=== PATIENT | female | born 1980 | race Caucasian/White ===

== ENCOUNTER 2019-07-02 17:47 | Emergency (ER) | payer OTHER, SELFPAY ==
[2019-07-02 18:25] VITALS: BP 153/94; PULSE 94; RESP 20; TEMP 36.6; O2SAT 100; BMI 30.5
[2019-07-02 19:21] LABS: Alanine Aminotransferase 22 IU/L (9-52); Albumin 4.9 g/dL (3.5-5.0); Albumin Globulin Ratio 1.5 (1.0-2.8); Alkaline Phosphatase 37 U/L (38-126); Aspartate Aminotransferase 34 IU/L (14-36); BUN Creatinine Ratio 28.6 (6-22); Bilirubin Total 0.9 mg/dL (0.2-1.3); Blood Urea Nitrogen 20 mg/dL (7-17); Carbon Dioxide 23 mmol/L (22-32); Chloride 104 mmol/L (98-107); Estimated Glomerular Filt Rate > 60.0 mL/min (>60); Globulin 3.2 g/dL (1.7-4.1); Glucose 85 mg/dL (70-100); Potassium 3.9 mmol/L (3.4-5.1); Sodium 140 mmol/L (137-145); Total Protein 8.1 g/dL (6.3-8.2)
[2019-07-02 19:24] LABS: HEMOLYSIS 54 (0-50)
[2019-07-02 19:29] LABS: Basophils Absolute Auto 100 /uL (0-100); Basophils Percent Auto 0.8 % (0-2); Eosinophils Absolute Auto 100 /uL (0-450); Eosinophils Percent Auto 1.6 % (2-4); Hematocrit 45.1 % (36-46); Hemoglobin 15.6 g/dL (12.0-16.0); Lymphocytes Absolute Auto 2600 /uL (1100-4500); Lymphocytes Percent Auto 33.5 % (25-40); Mean Corpuscular HGB Conc 34.7 % (30-36); Mean Corpuscular Hemoglobin 31.9 PG (26-34); Mean Corpuscular Volume 92.1 fL (80-100); Monocytes Absolute Auto 600 /uL (0-900); Monocytes Percent Auto 7.2 % (3-14); Neutrophils Absolute Auto 4400 /uL (1500-7000); Neutrophils Percent Auto 56.9 % (50-75); Platelet Count 268 X10^3/uL (150-400); Red Cell Distribution Width 12.5 % (11.6-14.8); White Blood Cell Count 7.7 X10^3/uL (4.5-11.0)
[2019-07-02 19:30] LABS: Add Manual Diff / Slide Review SLIDE REVIEW
[2019-07-02 19:50] VITALS: BP 131/83; PULSE 81; RESP 16; O2SAT 100
--- NOTE | 2019-07-02 19:55 | ED_ITS ---
HPI - Arrhythmia/Palpitations General Chief Complaint: Arrhythmia/Palpitations Stated Complaint: Heart palpitations/high pulse rate 116 Time Seen by Provider: 07/02/19 18:44 Source: patient Mode of arrival: ambulatory Limitations: no limitations History of Present Illness HPI narrative: Patient comes emergency department complaining of palpitations that started around noon today. She states that they have steadily worsened over the course the afternoon in that she feels like she is getting them more often. Patient denies any chest pain, but states her chest feels a little tight. She states that it feels as though her heart ?skips a beat.? She denies any shortness of breath. Patient states that she drank 1 cup of coffee today. Patient states that normally, she has 2 cups in the morning. She does not drink any other caffeinated beverages, and does not drink any energy drinks. She does note that her blood pressure medication was changed from metoprolol to lisinopril about 2 weeks ago. She has also been on the [employer] workout plan for about the last 24 days. Patient states that overall, she has felt increasingly good having been on the workout program. Patient denies vomiting or diarrhea recently. She was found to have borderline thyroid dysfunction on last testing, and states she is supposed to see her doctor in 2 months to have her thyroid retested. At this time, she is not on any medications for her thyroid. Patient denies any fevers or chills. No cough or rhinorrhea. No rec ent illness of any kind. Patient states that her father recently had an NE, and she is afraid of being at risk for this herself. Patient denies smoking. She is not a diabetic. Patient has had an increase and not a decrease in exercise tolerance recently. Related Data Home Medications Medication Instructions Recorded Confirmed [ control] #0 07/22/17 [mynocycline] #0 07/22/17 [valtrex] #0 07/22/17 [vitamin D] #0 07/22/17 Previous Rx's Medication Instructions Recorded levothyroxine [Synthroid] 100 mcg PO DAILY #30 tab 07/02/19 Allergies Allergy/AdvReac Type Severity Reaction Status Date / Time No Known Drug Allergies Allergy Verified 07/02/19 18:32 Review of Systems Review of Systems ROS Unobtainable: All systems reviewed & are unremarkable except as noted in HPI and below Constitutional Constitutional: Denies chills, Denies fatigue, Denies fever(s), Denies frequent falls, Denies lethargy and Denies weakness Eyes Eyes: Denies change in vision, Denies eye discharge, Denies irritation and Denies loss of vision ENT Ears, Nose, Mouth, and Throat: Denies change in voice, Denies dizziness, Denies neck pain, Denies sore throat and Denies throat swelling Cardiovascular Cardiovascular: Denies chest pain, Denies irregular heart rhythm, Denies lightheadedness, Reports palpitations, Denies dyspnea, Denies dyspnea on exertion and Denies orthopnea Respiratory Respiratory: Denies cough, Denies dyspnea, Denies dyspnea on exertion and Denies wheezing Gastrointestinal Gastrointestinal: Denies abdominal pain, Denies change in bowel habits, Denies diarrhea, Denies nausea and Denies vomiting Genitourinary Genitourinary: Denies hematuria, Denies flank pain, Denies urinary incontinence and Denies urinary urgency Musculoskeletal Musculoskeletal: Denies back pain, Denies muscle weakness, Denies neck pain, Denies numbness and Denies tingling Integumentary/Breasts Skin/Breast: Denies pruritus, Denies erythema, Denies rash and Denies wounds Neurologic Neurologic: Denies behavioral changes, Denies confusion, Denies dizziness, Denies frequent falls, Denies loss of vision, Denies numbness, Denies tingling and Denies weakness Psychiatric Psychiatric: Denies anxiety, Denies behavioral changes, Denies confusion, Denies depression, Denies homicidal ideation and Denies suicidal ideation Endocrine Endocrine: Denies fatigue, Denies flushing and Reports palpitations Hematologic/Lymphatic Hematologic/Lymphatic: Denies easy bruising Allergic/Immunologic Allergic/Immunologic: Denies urticaria, Denies throat swelling and Denies wheezing [facility] Medical History HTN (hypertension) (Acute) Surgical History No pertinent past surgical history (Acute) Social History Smoking Status: Former smoker Social History Smoking Status: Former smoker Exam Initial Vital Signs Initial Vital Signs: Vital Signs Temperature 97.9 F 07/02/19 18:25 Pulse Rate 94 H 07/02/19 18:25 Respiratory Rate 20 07/02/19 18:25 Blood Pressure 153/94 H 07/02/19 18:25 Pulse Oximetry 100 07/02/19 18:25 Const General: cooperative and well developed Nutritional Appearance: well nourished Orientation: alert, awake, oriented x3 and not confused [facility] Head: normocephalic and atraumatic Ears: TM's normal bilaterally Nose: external nose normal Face and sinus: face symmetric and No dry mucous membranes Mouth: oral mucosae normal and moist mucous membranes Teeth and gingiva: dentition normal Eyes General: appearance normal, both eyes and all related structures Eyelids: eyelids normal Conjunctivae: conjunctivae normal Sclera: sclerae normal Pupils: PERRL EOM: EOM intact bilaterally Neck Neck: normal visual inspection, trachea midline, No lymphadenopathy, No midline deformity and No JVD Lymphatic: No lymphedema Chest Chest: normal inspection of the chest Resp Effort & Inspection: normal respiratory effort, able to speak in complete sentences, no respiratory distress and no use of accessory muscles Auscultation: clear to auscultation bilaterally, no rales, no rhonchi and no wheezes Cardio Rate: regular rate Rhythm: regular rhythm Heart Sounds: no click, no gallops, no murmurs and no rubs Pulses: normal peripheral pulses GI Inspection: non-distended Palpation: soft, no hepatosplenomegaly, No guarding, No pulsatile mass and No tender Auscultation: normal bowel sounds Back/Spine/Pelvis Back: No CVA tenderness Cervical Spine: cervical ROM normal and No pain with cervical ROM Thoracic/Lumbar Spine: thoracic and lumbar spine normal to inspection Skin General: no rashes or lesions noted, No jaundice and No petechiae Neuro General: alert, oriented x3, gait normal and no focal motor deficits Speech: speech normal Extrem General: full ROM, no clubbing, cyanosis or edema, no pedal edema and no calf tenderness Psych Appearance: well kempt Mental Status: mental status grossly normal Attitude: cooperative Thought Content: normal and suicidality Judgment: judgment good Course Course Course Narrative: Patient was given a L of IV fluid and worked up with laboratory studies and EKG. EKG was unremarkable except for occasional PVCs. Patient was also found to have occasional PVCs on monitor. Workup revealed a significantly elevated TSH. Discussed with the patient that the hypothyroidism very well may be contributing to the patient's palpitations, but that this also may be a coincidental finding. I have started the patient on Synthroid from the emergency department. I have discussed with her the importance of following up her primary care physician within the next 1-2 weeks to have her thyroid reche cked. Patient states that she has an appointment coming up very soon. We have discussed home management of symptoms, as well as the usual indications for return. Orders Ordered: Discontinued Medications Sodium Chloride (Normal Saline 0.9%) 1,000 mls @ 1,000 mls/hr IV BOLUS ONE Stop: 07/02/19 20:53 Last Infusion: 07/02/19 21:18 Dose: 0 mls/hr Documented by: Admin: 07/02/19 19:59 Dose: 1,000 mls/hr Documented by: TAN Vital Signs Vital signs: Vital Signs - 8 hr 07/02/19 18:25 07/02/19 19:50 Temperature 97.9 F Pulse Rate 94 H 81 Respiratory Rate 20 16 Blood Pressure 153/94 H Blood Pressure [Right Arm] 131/83 Pulse Oximetry 100 100 MDM - Arrhythmia/Palpitations Medical Records Attestation: I reviewed the patient's medical records. Lab Data Attestation: I reviewed the patient's lab results. Result diagrams: 07/02/19 18:59 07/02/19 18:59 Labs: Lab Results 07/02/19 07/02/19 07/02/19 Range/Units 18:59 18:59 18:59 WBC 7.7 (4.5-11.0) X10^3/uL RBC 4.90 (4.0-5.2) X10^6/uL Hgb 15.6 (12.0-16.0) g/dL Hct 45.1 (36-46) % MCV 92.1 (80-100) fL MCH 31.9 (26-34) PG MCHC 34.7 (30-36) % RDW 12.5 (11.6-14.8) % Plt Count 268 (150-400) X10^3/uL Neut % (Auto) 56.9 (50-75) % Lymph % (Auto) 33.5 (25-40) % [place] % (Auto) 7.2 (3-14) % Eos % (Auto) 1.6 L (2-4) % Baso % (Auto) 0.8 (0-2) % Neut # (Auto) 4400 (9005-7798) /uL Lymph # (Auto) 2600 (5962-4941) /uL [place] # (Auto) 600 (0-900) /uL Eos # (Auto) 100 (0-450) /uL Baso # (Auto) 100 (0-100) /uL RBC Morphology Normal morphology Sodium 140 (137-145) mmol/L Potassium 3.9 (3.4-5.1) mmol/L Chloride 104 (98-107) mmol/L Carbon Dioxide 23 (22-32) mmol/L BUN 20 H (7-17) mg/dL Creatinine 0.70 (0.52-1.04) mg/dL Estimated GFR > 60.0 (>60) mL/min BUN/Creatinine Ratio 28.6 H (6-22) Glucose 85 (70-100) mg/dL Calcium 10.0 (8.4-10.2) mg/dL Total Bilirubin 0.9 (0.2-1.3) mg/dL AST 34 (14-36) IU/L ALT 22 (9-52) IU/L Alkaline Phosphatase 37 L (38-126) U/L Total Protein 8.1 (6.3-8.2) g/dL Albumin 4.9 (3.5-5.0) g/dL Globulin 3.2 (1.7-4.1) g/dL Albumin/Globulin Ratio 1.5 (1.0-2.8) TSH 7.86 H (0.47-4.68) uIU/mL ECG Data Attestation: I personally reviewed and interpreted this ECG as follows: (See below) Interpretation: Twelve lead EKG: Regular ventricular rhythm with a normal rate Normal axis P waves of normal morphology and size correlating well with QRS complexes NM intervals normal QRS complexes narrow No significant ST T wave changes Occasional ectopy Interpretation: Normal sinus rhythm; cage in all PVC; no signs of acute ischemia; normal EKG as interpreted by ED MD. Discharge Plan Departure Patient Disposition: Home Clinical Impression: Palpitations Hypothyroidism Qualifiers: Hypothyroidism type: unspecified Qualified Code(s): E03.9 - Hypothyroidism, unspecified Discharge Date/Time: 07/02/19 21:24 Instructions: DI for Arrhythmias, DI for Hypothyroidism Activity Restrictions/Additional Instructions: Overall, her labs pretty good. Your thyroid stimulating hormone, however (the hormone that is put out by your pituitary gland to tell the thyroid to do its job), was significantly elevated. As such, you will be prescribed thyroid medication, but you should follow-up with your primary doctor within the next week to determine if this is a good long-term dose for you. There is no quiles erous cause palpitations at this time. You have been found to have premature ventricular complexes, which are extra beats thrown in by the pump portion of your heart. These are benign and extremely common. If you develop a heart rate that is sustained above 120 beats per minute, you should return to the emergency department. Otherwise, please follow up with your primary doctor if the palpitations worsen. Prescriptions: New levothyroxine [Synthroid] 100 mcg tablet 100 mcg PO DAILY Qty: 30 RF: 0 No Action [ control] Qty: 0 RF: 0 [mynocycline] Qty: 0 RF: 0 [valtrex] Qty: 0 RF: 0 [vitamin D] Qty: 0 RF: 0 Referrals: Shun Ortega MD [Primary Care Provider] -
[2019-07-02] MEDS: SODIUM CHLORIDE 0.9% 1,000 ML 1000 ML IV (19:59)
[2019-07-02 20:08] LABS: RBC Morphology Normal Morphology
[2019-07-02 20:49] LABS: Thyroid Stimulating Hormone 7.86 uIU/mL (0.47-4.68)
[2019-07-02 21:00] VITALS: BP 129/77; PULSE 81; RESP 17; O2SAT 100
== END 2019-07-02 21:24 | disposition home or self-care (01) ==
PROVIDERS: Emergency Provider Emergency Medicine; Family Provider Family Medicine; PCP Family Medicine
DX: R00.2 Palpitations (principal); E03.9 Hypothyroidism, unspecified
CPT/HCPCS: 80053; 84443; 85025; 93005; 96360; 99283; 99284

== ENCOUNTER → 2019-08-25 12:04 | Outpatient (CLI) | payer OTHER, SELFPAY ==
[2019-08-25 13:13] LABS: Free T3, Triiodothyronine Free 3.96 pg/mL (2.77-5.27)
[2019-08-25 13:27] LABS: Thyroid Stimulating Hormone 1.91 uIU/mL (0.47-4.68)
[2019-08-30 15:24] LABS: Thyroid Peroxidase Antibodies 36 IU/mL (< 9)
== END ==
PROVIDERS: PCP Family Medicine; Visit Provider Naturopath
DX: E03.9 Hypothyroidism, unspecified (principal)
CPT/HCPCS: 36415; 84439; 84443; 84481; 86376

== ENCOUNTER → 2019-12-19 17:04 | Outpatient (CLI) | payer BC, SELFPAY ==
--- NOTE | 2019-12-19 | DI.MG.S_ITS ---
BILATERAL DIGITAL SCREENING MAMMOGRAM 3D/2D WITH CAD: 12/19/2019 CLINICAL: Routine screening. Baseline exam. No prior exams were available for comparison. There are scattered fibroglandular elements in both breasts. Current study was also evaluated with a Computer Aided Detection (CAD) system. There are benign intramammary nodes in both breasts. No significant masses, calcifications, or other findings are seen in either breast. IMPRESSION: There is no mammographic evidence of malignancy. A 1 year screening mammogram is recommended. This exam was interpreted at Station ID: [id number]. NOTE: For mammograms, a report in lay terms will be sent to the patient. Approximately 15% of breast malignancies will not be visualized mammographically. In the management of a palpable breast mass, a negative mammogram must not discourage biopsy of a clinically suspicious lesion. Electronically Signed By: Trino peterson/gallo:12/20/2019 08:25:36 letter sent: Normal Exam ACR BI-RADS Category 2: Benign Finding(s) 3342F
== END ==
PROVIDERS: PCP Family Medicine; Referring Provider Internal Medicine; Visit Provider Internal Medicine
DX: Z12.31 Encounter for screening mammogram for malignant neoplasm of breast (principal)
CPT/HCPCS: 77063; 77067

== ENCOUNTER → 2020-12-21 08:08 | Outpatient (CLI) | payer BC, SELFPAY ==
--- NOTE | 2020-12-21 | DI.MG.S_ITS ---
BILATERAL DIGITAL SCREENING MAMMOGRAM 3D/2D WITH CAD: 12/21/2020 CLINICAL: Routine screening. Comparison is made to exam dated: 12/19/2019 [facility]. There are scattered fibroglandular elements in both breasts. Current study was also evaluated with a Computer Aided Detection (CAD) system. There are benign intramammary nodes in both breasts. No significant masses, calcifications, or other findings are seen in either breast. There has been no significant interval change. IMPRESSION: BENIGN There is no mammographic evidence of malignancy. A 1 year screening mammogram is recommended. This exam was interpreted at Station ID: [id number]. NOTE: For mammograms, a report in lay terms will be sent to the patient. Approximately 15% of breast malignancies will not be visualized mammographically. In the management of a palpable breast mass, a negative mammogram must not discourage biopsy of a clinically suspicious lesion. Electronically Signed By: Trino peterson/gallo:12/23/2020 07:26:16 letter sent: Normal Exam ACR BI-RADS Category 2: Benign Finding(s) 3342F
== END ==
PROVIDERS: PCP Family Medicine; Referring Provider Family Medicine; Visit Provider Family Medicine
DX: Z12.31 Encounter for screening mammogram for malignant neoplasm of breast (principal)
CPT/HCPCS: 77063; 77067

== ENCOUNTER → 2022-11-13 09:26 | Outpatient (CLI) | payer BC, SELFPAY ==
--- NOTE | 2022-11-13 | DI.RAD.S_ITS ---
PROCEDURE: XR KNEE RT 3V INDICATIONS: right knee pain TECHNIQUE: 3 views of the knee were acquired. COMPARISON: [facility], , KNEE 3V RIGHT, 09/18/2015, 13:41. FINDINGS: Bones: No fractures or dislocations. No suspicious bony lesions. Soft tissues: No joint effusion. No suspicious soft tissue calcifications. IMPRESSION: Normal right knee radiographs Approved by: Alonso Thomson M.D. on 11/13/2022 at 13:06
== END ==
PROVIDERS: PCP Family Medicine; Referring Provider Family Medicine; Visit Provider Family Medicine
DX: M25.561 Pain in right knee (principal)
CPT/HCPCS: 73562

== ENCOUNTER → 2022-12-05 08:34 | Outpatient (CLI) | payer BC, SELFPAY ==
--- NOTE | 2022-12-05 08:35 | DI.MG.S_ITS ---
BILATERAL DIGITAL SCREENING MAMMOGRAM 3D/2D WITH CAD: 12/05/2022 CLINICAL: Routine screening. Comparison is made to exams dated: 12/21/2020 mammogram and 12/19/2019 mammogram - [facility]. There are scattered areas of fibroglandular density in both breasts (category b / 25%-50% glandular tissue). Current study was also evaluated with a Computer Aided Detection (CAD) system. There is an oval low density asymmetry with an obscured and circumscribed margin in the right breast at 11 o'clock posterior depth. No other significant masses, calcifications, or other findings are seen in either breast. IMPRESSION: INCOMPLETE: NEEDS ADDITIONAL IMAGING EVALUATION The oval low density asymmetry in the right breast is indeterminate. Mediolateral and spot compression views as well as additional views with possible ultrasound are recommended. Based on the Tyrer Cuzick model (a risk assessment model) the patient's lifetime risk is 8.5% and her 10 year risk is 1.2%. According to the ACR, ACS, and NCCN guidelines, an annual breast MRI exam along with mammogram is recommended if the patient's lifetime risk is 20% or greater. This exam was interpreted at Station ID: [id number]. NOTE: For mammograms, a report in lay terms will be sent to the patient. Approximately 15% of breast malignancies will not be visualized mammographically. In the management of a palpable breast mass, a negative mammogram must not discourage biopsy of a clinically suspicious lesion. Electronically Signed By: Chin swanson/gallo:12/07/2022 02:47:53 letter sent: Additional Imaging Needed ACR BI-RADS Category 0: Incomplete 3340F
== END ==
PROVIDERS: PCP Family Medicine; Referring Provider Family Medicine; Visit Provider Family Medicine
DX: Z12.31 Encounter for screening mammogram for malignant neoplasm of breast (principal)
CPT/HCPCS: 77063; 77067

== ENCOUNTER → 2022-12-29 10:43 | Outpatient (CLI) | payer BC, SELFPAY ==
--- NOTE | 2022-12-29 | DI.US.S_ITS ---
LIMITED ULTRASOUND OF RIGHT BREAST: 12/29/2022 CLINICAL: Patient returns today to evaluate an asymmetry in the right breast. Comparison is made to exams dated: 12/29/2022 mammogram, 12/05/2022 mammogram, 12/21/2020 mammogram, and 12/19/2019 mammogram - [facility]. Color flow and real-time ultrasound of the right breast 11 o'clock region were performed. Rogers scale images of the real-time examination were reviewed. No sonographic correlate for the right breast asymmetry. IMPRESSION: NEGATIVE No sonographic correlate for the right breast asymmetry which is of decreased conspicuity on current mammogram with spot compression. This likely represents fibroglandular tissue superimposed on the recent screening mammogram. A follow-up mammogram in 6 months is recommended to demonstrate stability. This exam was interpreted at Station ID: [id number]. Electronically Signed By: Christopher Waldron M.D. jr/:12/29/2022 13:03:05 letter sent: Followup Recommended Ultrasound BI-RADS: 1 Negative
--- NOTE | 2022-12-29 | DI.MG.S_ITS ---
UNILATERAL RIGHT DIGITAL DIAGNOSTIC MAMMOGRAM 3D/2D WITH ADDITIONAL VIEWS: 12/29/2022 CLINICAL: Additional evaluation requested from prior study. Comparison is made to exams dated: 12/05/2022 mammogram, 12/21/2020 mammogram, and 12/19/2019 mammogram - [facility]. There are scattered areas of fibroglandular density in the right breast (category b / 25%-50% glandular tissue). There is an oval low density asymmetry with an obscured and circumscribed margin in the right breast at 11 o'clock posterior depth. This is seen in additional views. This is less prominent. No other significant masses or calcifications are seen in the breast. IMPRESSION: INCOMPLETE: NEEDS ADDITIONAL IMAGING EVALUATION The oval low density asymmetry in the right breast is indeterminate. An ultrasound is recommended. Based on the Tyrer Cuzick model (a risk assessment model) the patient's lifetime risk is 8.5% and her 10 year risk is 1.3%. According to the ACR, ACS, and NCCN guidelines, an annual breast MRI exam along with mammogram is recommended if the patient's lifetime risk is 20% or greater. This exam was interpreted at Station ID: [id number]. NOTE: For mammograms, a report in lay terms will be sent to the patient. Approximately 15% of breast malignancies will not be visualized mammographically. In the management of a palpable breast mass, a negative mammogram must not discourage biopsy of a clinically suspicious lesion. Electronically Signed By: Christopher Waldron M.D., jr/gallo:12/29/2022 13:01:06 ACR BI-RADS Category 0: Incomplete 3340F
== END ==
PROVIDERS: PCP Family Medicine; Referring Provider Family Medicine; Visit Provider Family Medicine
DX: R92.8 Other abnormal and inconclusive findings on diagnostic imaging of breast (principal); N64.89 Other specified disorders of breast
CPT/HCPCS: 76642; 77065; G0279

== ENCOUNTER → 2023-02-09 07:12 | Outpatient (CLI) | payer BC, SELFPAY ==
[2023-02-09 08:43] LABS: Add Manual Diff / Slide Review NO; Basophils Absolute Auto 100 /uL (0-100); Basophils Percent Auto 0.9 % (0-2); Eosinophils Absolute Auto 200 /uL (0-450); Eosinophils Percent Auto 3.1 % (2-4); Hematocrit 42.3 % (36-46); Hemoglobin 14.6 g/dL (12.0-16.0); Lymphocytes Absolute Auto 2100 /uL (1100-4500); Lymphocytes Percent Auto 37.5 % (25-40); Mean Corpuscular HGB Conc 34.5 % (30-36); Mean Corpuscular Hemoglobin 31.3 PG (26-34); Mean Corpuscular Volume 90.6 fL (80-100); Monocytes Absolute Auto 500 /uL (0-900); Monocytes Percent Auto 8.1 % (3-14); Neutrophils Absolute Auto 2800 /uL (1500-7000); Neutrophils Percent Auto 50.4 % (50-75); Platelet Count 229 X10^3/uL (150-400); Red Blood Cell Count 4.66 X10^6/uL (4.0-5.2); Red Cell Distribution Width 12.7 % (11.6-14.8); White Blood Cell Count 5.6 X10^3/uL (4.5-11.0)
[2023-02-09 08:45] LABS: Alanine Aminotransferase 56 IU/L (<35); Albumin 4.1 g/dL (3.5-5.0); Albumin Globulin Ratio 1.4 (1.0-2.8); Alkaline Phosphatase 56 U/L (38-126); Aspartate Aminotransferase 43 IU/L (14-36); BUN Creatinine Ratio 25.4 (6-22); Bilirubin Total 0.2 mg/dL (0.2-1.3); Blood Urea Nitrogen 16 mg/dL (7-17); Calcium 9.1 mg/dL (8.4-10.2); Carbon Dioxide 26 mmol/L (22-32); Chloride 107 mmol/L (98-107); Cholesterol 184 mg/dL (140-199); Estimated Glomerular Filt Rate > 60 mL/min (>60); Globulin 2.9 g/dL (1.7-4.1); Glucose 101 mg/dL (70-100); HDL Cholesterol 71 mg/dL (40-60); HEMOLYSIS < 15 (0-50); LDL Cholesterol Calculated 96 mg/dL (<100); Potassium 4.1 mmol/L (3.4-5.1); Sodium 140 mmol/L (137-145); Triglycerides 85 mg/dL (35-150)
[2023-02-09 09:15] LABS: Free T3, Triiodothyronine Free 4.65 pg/mL (2.77-5.27); Free T4, Direct Thyroxine 0.77 ng/dL (0.78-2.19)
[2023-02-09 09:29] LABS: Thyroid Stimulating Hormone 4.69 uIU/mL (0.47-4.68)
== END ==
PROVIDERS: PCP Family Medicine; Referring Provider Naturopath; Visit Provider Naturopath
DX: Z00.00 Encounter for general adult medical examination without abnormal findings (principal); E03.9 Hypothyroidism, unspecified; F41.9 Anxiety disorder, unspecified
CPT/HCPCS: 36415; 80053; 80061; 84439; 84443; 84481; 85025

== ENCOUNTER 2023-03-16 05:34 | Emergency (ER) | payer BC, SELFPAY ==
[2023-03-16 05:41] VITALS: BP 176/88; PULSE 91; RESP 18; TEMP 36.3; O2SAT 100; BMI 34.2
--- NOTE | 2023-03-16 05:42 | DI.RAD.S_ITS ---
PROCEDURE: XR FOOT RT MIN 3V INDICATIONS: pain, swelling, plantar surface, anterior to calcaneus TECHNIQUE: 3 views of the foot were acquired. COMPARISON: None. FINDINGS: Bones: No fractures or dislocations. Tiny plantar calcaneal spur. No suspicious bony lesions. Soft tissues: No tibiotalar joint effusion. Achilles tendon appears normal. No radiopaque foreign body. IMPRESSION: No acute osseous abnormality. No radiopaque foreign body. Tiny plantar calcaneal spur. This report is concordant with the overnight preliminary interpretation. Dictated by: Uziel Kenney M.D. on 03/16/2023 at 7:53 Approved by: Uziel Kenney M.D. on 03/16/2023 at 7:55
--- NOTE | 2023-03-16 05:43 | ED.GENADULT ---
HPI - General Adult General Chief complaint: Extremity Problem,Nontraumatic Stated complaint: rt foot pain Time Seen by Provider: 03/16/23 05:42 History of Present Illness HPI narrative: 42-year-old female former smoker with noncontributory medical history presents with a chief complaint of gradually worsening pain on the bottom of her right foot over the past 2 weeks. She denies any known injury. She states that over that time she is had increasing pain when ambulating on the plantar surface of her foot just anterior to her heel. She denies stepping on any foreign bodies. She has had no change in her exercise or workout routine and denies any new footwear though she did buy some new shoes that she thought might help with this pain. She denies ankle, knee or hip pain. Related Data Home Medications Medication Instructions Recorded Confirmed [ control] ##0 07/22/17 [mynocycline] ##0 07/22/17 [valtrex] ##0 07/22/17 [vitamin D] ##0 07/22/17 Previous Rx's Medication Instructions Recorded levothyroxine 100 mcg tablet 100 mcg PO DAILY #30 tabs 07/02/19 (Synthroid) ketorolac 10 mg tablet 10 mg PO Q6H PRN pain #20 tabs 03/16/23 Allergies Allergy/AdvReac Type Severity Reaction Status Date / Time No Known Drug Allergies Allergy Verified 07/02/19 18:32 Review of Systems Review of Systems Narrative: GENERAL: Denies chills, fatigue, malaise, fever, sweats. HEENT: Denies sinus pain, ear pain, sore throat, difficulty swallowing, dizziness. RESPIRATORY: Denies dyspnea, cough, wheezing, hemoptysis, sputum. CARDIOVASCULAR: Denies chest pain, palpitations, orthopnea, edema, GASTROINTESTINAL: Denies nausea, vomiting, abdominal pain, diarrhea, constipation, melena. : Denies dysuria, frequency, incontinence, hematuria, urinary retention. MUSCULOSKELETAL: See HPI SKIN: Denies rash, skin lesions, or other NEUROLOGIC: Denies weakness, headache, numbness, change in speech, confusion, seizures, incoordination. PSYCHIATRIC: No concerning psychosocial issues. 12 point review of systems is negative except for those stated above Patient History Medical History (Updated 03/16/23 @ 05:53 by Jamar Ayoub DO) HTN (hypertension) Surgical History No pertinent past surgical history Social History Smoking Status: Former smoker Smoking Status: Former smoker alcohol intake frequency: a few times a week Substance Use Type: does not use Exam Narrative Exam Narrative: GEN: AOx3 and in mild distress EYES: Pupils are equal, round, and reactive to light and accommodation. Extraoccular muscles are intact bilaterally. There is no subconjunctival hemorrhage or exudate. CHEST: Lungs are clear to auscultation bilaterally and free of wheezes, rales, or rhonchi. Heart rate is regular rhythm, there are no murmurs, clicks, rubs, or gallops. There is no chest wall tenderness. ABD: Abdomen is soft and nontender. There is no guarding or rebound. Bowel sounds are normal in all 4 quadrants. There is no mass or organomegaly. EXT: Dorsum of foot without obvious deformity or discoloration, cap refill less than 2 seconds, no pain on lateral or medial malleolus or anteriorly over the talus. On plantar surface she is tender to palpation in the arch and plantar surface just anterior to the calcaneus. No erythema, lesions, foreign body or obvious plantar wart SKIN: Warm, pink, and dry. No erythema or rash Initial Vital Signs Initial Vital Signs: Vital Signs Temperature 97.3 F L 03/16/23 05:41 Pulse Rate 91 H 03/16/23 05:41 Respiratory Rate 18 03/16/23 05:41 Blood Pressure 176/88 H 03/16/23 05:41 Pulse Oximetry 100 03/16/23 05:41 Oxygen Delivery Method Room Air 03/16/23 05:41 Course Orders Ordered: ED Orders 03/16/23 05:42 XR foot RT min 3V Stat Medical Decision Making MDM Narrative Medical decision making narrative: [42] year old patient presents with R foot pain in the absence of obvious injury Multiple etiologies for patient's symptoms considered including, but not limited to: Plantar fasciitis versus plantar wart versus foreign body versus fracture versus dislocation versus other Prior Charts reviewed in our EMR Primary Historian: patient Imaging reviewed: Mild heel spur Patient with reassuring history and physical exam, imaging without obvious abnormality. No evidence of foreign body or or. Most likely consistent with plantar fasciitis or other similar inflammatory condition. Patient encouraged to consider the routine use of anti-inflammatories in the short term and avoid barefoot walking or flat shoes, encouraged to track down shoes with arch support or supplemental heel cups. Findings and discharge diagnosis discussed with patient/family followed by verbalization of understanding Return precautions discussed with patient/family whom verbalize understanding of diagnosis and plan Discharge Plan Departure Patient Disposition: Home Clinical Impression: Acute foot pain, Plantar fasciitis of right foot Instructions: DI for Plantar Fasciitis Activity Restrictions/Additional Instructions: *You have been diagnosed with [right foot pain most consistent with plantar fasciitis or other soft tissue inflammatory condition. As we discussed your history and physical exam are reassuring and imaging shows no obvious foreign body or bony abnormality] *What to do: *Please continue your routine meds a previously prescribed [x] Prescription sent to [email or web address] at your request [x] Consider obtaining shoes with adequate arch support or arch inserts, you can also find prefabricated heel cups that can be helpful *Please follow up with your primary care provider in 5-73 days, call for an appointment. Let them know you were seen in the Emergency Department and that we ask that you be seen in follow up. We will electronically transmit a record of today's note if your PCP is in our system *Return to Emergency Department if you should have any new, worsening or concerning symptoms, such as [fever greater than 101 F, shaking chills, worsening pain, persistent vomiting or other bothersome symptoms] Radiographic study has been interpreted by an emergency physician. The official diagnosis by radiology will be performed within the next 24 hours and should there be any change in outcome we will notify you of how to proceed. Prescriptions: New ketorolac 10 mg tablet 10 mg PO Q6H PRN (Reason: pain) Qty: 20 0RF No Action [ control] Qty: 0 [mynocycline] Qty: 0 [valtrex] Qty: 0 [vitamin D] Qty: 0 levothyroxine [Synthroid] 100 mcg tablet 100 mcg PO DAILY Qty: 30 0RF Referrals: Shun Ortega MD [Primary Care Provider] - Stand Alone Forms: Patient Portal/API
[2023-03-16 06:05] VITALS: BP 128/83
== END 2023-03-16 06:08 | disposition home or self-care (01) ==
PROVIDERS: Emergency Provider Emergency Medicine; PCP Family Medicine
DX: M72.2 Plantar fascial fibromatosis (principal); M79.671 Pain in right foot
CPT/HCPCS: 73630; 99281; 99283

== ENCOUNTER → 2023-07-06 09:20 | Outpatient (CLI) | payer BC, SELFPAY ==
--- NOTE | 2023-07-06 | DI.MG.S_ITS ---
UNILATERAL RIGHT DIGITAL DIAGNOSTIC MAMMOGRAM 3D/2D SHORT-TERM FOLLOW-UP: 07/06/2023 CLINICAL: Short term follow up of the right breast. Comparison is made to exams dated: 12/29/2022 ultrasound, 12/29/2022 mammogram, and 12/05/2022 mammogram - [facility]. There are scattered areas of fibroglandular density in the right breast (category b / 25%-50% glandular tissue). There are new grouped heterogeneous calcifications in the right breast at 3 o'clock posterior depth. There also are new grouped heterogeneous calcifications in the right breast at 12 o'clock posterior depth. Additionally, there are new grouped heterogeneous calcifications in the right breast at 6 o'clock middle depth. No other significant masses or calcifications are seen in the breast. IMPRESSION: PROBABLY BENIGN The new grouped heterogeneous calcifications in the right breast at 3 o'clock posterior depth most likely are fat necrosis and are probably benign. The new grouped heterogeneous calcifications in the right breast at 12 o'clock posterior depth most likely are fat necrosis and are probably benign. The new grouped heterogeneous calcifications in the right breast at 6 o'clock middle depth most likely are fat necrosis and are probably benign. A follow-up bilateral mammogram with possible right ultrasound in 6 months is recommended to demonstrate stability. Findings and recommendations were conveyed to the patient during today's evaluation. Based on the Tyrer Cuzick model (a risk assessment model) the patient's lifetime risk is 8.5% and her 10 year risk is 1.3%. According to the ACR, ACS, and NCCN guidelines, an annual breast MRI exam along with mammogram is recommended if the patient's lifetime risk is 20% or greater. This exam was interpreted at Station ID: [id number]. NOTE: For mammograms, a report in lay terms will be sent to the patient. Approximately 15% of breast malignancies will not be visualized mammographically. In the management of a palpable breast mass, a negative mammogram must not discourage biopsy of a clinically suspicious lesion. Electronically Signed By: Trino Jiménez M.D. aty/:07/06/2023 10:37:03 letter sent: Followup Recommended ACR BI-RADS Category 3: Probably benign 3343F
== END ==
PROVIDERS: PCP Family Medicine; Referring Provider Family Medicine; Visit Provider Family Medicine
DX: R92.1 Mammographic calcification found on diagnostic imaging of breast
CPT/HCPCS: 77065; G0279

== ENCOUNTER → 2023-07-08 11:37 | Outpatient (CLI) | payer BC, SELFPAY ==
[2023-07-08 14:43] LABS: Alanine Aminotransferase 21 IU/L (<35); Albumin 4.6 g/dL (3.5-5.0); Albumin Globulin Ratio 1.6 (1.0-2.8); Alkaline Phosphatase 61 U/L (38-126); Aspartate Aminotransferase 28 IU/L (14-36); Bilirubin Total 0.4 mg/dL (0.2-1.3); Bilirubin Unconjugated 0.3 mg/dL (0.0-1.1); Globulin 2.8 g/dL (1.7-4.1); HEMOLYSIS < 15 (0-50); Total Protein 7.4 g/dL (6.3-8.2)
[2023-07-08 15:00] LABS: Free T3, Triiodothyronine Free 4.19 pg/mL (2.77-5.27); Free T4, Direct Thyroxine 0.92 ng/dL (0.78-2.19)
[2023-07-08 15:13] LABS: Thyroid Stimulating Hormone 2.07 uIU/mL (0.47-4.68)
== END ==
PROVIDERS: PCP Family Medicine; Referring Provider Naturopath; Visit Provider Naturopath
DX: E03.9 Hypothyroidism, unspecified (principal); R94.5 Abnormal results of liver function studies
CPT/HCPCS: 36415; 80076; 84439; 84443; 84481

== ENCOUNTER → 2023-07-08 | Outpatient (CLI) | payer BC, SELFPAY | PROVIDERS: PCP Family Medicine; Referring Provider Naturopath; Visit Provider Naturopath ==

== ENCOUNTER → 2023-12-10 08:31 | Outpatient (ROUT) | payer BC, SELFPAY ==
[2023-12-10 09:20] LABS: Prothrombin Time 11.4 SECONDS (9.4-12.5)
[2023-12-10 09:22] LABS: PTT Partial Thromboplastin Tim 48 SECONDS (25.1-36.5)
== END ==
PROVIDERS: PCP Family Medicine; Visit Provider Family Medicine
DX: E66.09 Other obesity due to excess calories (principal); Z68.32 Body mass index [BMI] 32.0-32.9, adult
CPT/HCPCS: 85610; 85730

== ENCOUNTER → 2024-05-30 08:43 | Outpatient (CLI) | payer OTHER, SELFPAY ==
--- NOTE | 2024-05-30 08:45 | DI.MG.S_ITS ---
BILATERAL DIGITAL DIAGNOSTIC MAMMOGRAM 3D/2D SHORT-TERM FOLLOW-UP: 05/30/2024 CLINICAL: Patient returns for a 12 month follow up of the right breast, due for bilateral exam. Comparison is made to exams dated: 07/06/2023 mammogram, 12/29/2022 mammogram, 12/05/2022 mammogram, 12/21/2020 mammogram, and 12/19/2019 mammogram - [facility]. Both breasts are almost entirely fatty (category a/<25% glandular tissue). There are benign grouped coarse dystrophic calcifications in the right breast at 3 o'clock posterior depth. There also are benign grouped coarse dystrophic calcifications in the right breast at 12 o'clock posterior depth. Additionally, there are benign grouped coarse dystrophic calcifications in the right breast at 6 o'clock middle depth. No suspicious changes. Mammograms are otherwise stable. No other significant masses, calcifications, or other findings are seen in either breast. IMPRESSION: BENIGN Benign calcifications in the right breast. Bilateral mammograms are otherwise stable. There is no mammographic evidence of malignancy. Return to annual mammogram screening schedule is recommended. Findings and recommendations were conveyed to the patient at time of exam. Based on the Tyrer Cuzick model (a risk assessment model) the patient's lifetime risk is 5.7% and her 10 year risk is 0.9%. According to the ACR, ACS, and NCCN guidelines, an annual breast MRI exam along with mammogram is recommended if the patient's lifetime risk is 20% or greater. This exam was interpreted at Station ID: [id number]. NOTE: For mammograms, a report in lay terms will be sent to the patient. Approximately 15% of breast malignancies will not be visualized mammographically. In the management of a palpable breast mass, a negative mammogram must not discourage biopsy of a clinically suspicious lesion. Electronically Signed By: Josselyn pereira/:05/30/2024 09:36:43 copy to: RHEA SILVA letter sent: Normal Exam ACR BI-RADS Category 2: Benign Finding(s) 3342F
== END ==
LOC: MAMMO 08:44
PROVIDERS: PCP Family Medicine; Referring Provider Family Medicine; Visit Provider Family Medicine
DX: R92.8 Other abnormal and inconclusive findings on diagnostic imaging of breast (principal); R92.1 Mammographic calcification found on diagnostic imaging of breast; R92.313 Mammographic fatty tissue density, bilateral breasts
CPT/HCPCS: 77066; G0279

== ENCOUNTER → 2024-05-31 07:54 | Outpatient (CLI) | payer OTHER, SELFPAY ==
--- NOTE | 2024-05-31 07:56 | DI.RAD.S_ITS ---
PROCEDURE: XR SKULL<4V INDICATIONS: SCALP PAIN TECHNIQUE: Three views of the skull acquired. COMPARISON: None. FINDINGS: Bones: No fractures. No suspicious bony lesions. Visualized sinuses appear clear. Soft tissues: No soft tissue calcifications. No suspicious soft tissue densities. IMPRESSION: No pathologic finding is seen within the provided images to explain the patient's pain. Dictated by: Jovan Jacob M.D. on 05/31/2024 at 8:44 Approved by: Jovan Jacob M.D. on 05/31/2024 at 8:46
== END ==
PROVIDERS: PCP Family Medicine; Referring Provider Family Medicine; Visit Provider Family Medicine
DX: R51.9 Headache, unspecified (principal)
CPT/HCPCS: 70250

== ENCOUNTER → 2025-08-27 10:15 | Outpatient (CLI) | payer BC, SELFPAY ==
--- NOTE | 2025-08-27 10:16 | DI.US.S_ITS ---
US breast BI limited, MM diagnostic mammo BI: 08/27/2025 BI-RADS: 2
== END ==
LOC: US 10:15
PROVIDERS: PCP Family Medicine; Referring Provider Family Medicine; Visit Provider Family Medicine
DX: N64.4 Mastodynia (principal)
CPT/HCPCS: 76642; 77066; G0279